=== PATIENT | male | born 1950 | race Caucasian/White ===

== ENCOUNTER 2024-08-30 06:21 | Day surgery (SDC) | payer MEDICARE, OTHER, SELFPAY | END 2024-08-30 08:41 | disposition home or self-care (01) | LOC: GI 06:21 | PROVIDERS: ATTENDING PHYSICIAN Internal Medicine Gastroenterology | DX: Z12.11 Encounter for screening for malignant neoplasm of colon (principal); K64.9 Unspecified hemorrhoids; K57.30 Diverticulosis of large intestine without perforation or abscess without bleeding; R13.10 Dysphagia, unspecified; D12.2 Benign neoplasm of ascending colon; K22.2 Esophageal obstruction; K31.89 Other diseases of stomach and duodenum; Z86.0100 Personal history of colon polyps, unspecified | CPT/HCPCS: 45385; 45380; 43239; 88305; 88342 ==